=== PATIENT | female | born 1995 | race Caucasian/White ===

== ENCOUNTER 2025-02-06 11:11 | Inpatient (IN) | payer OTHER, SELFPAY ==
[2025-02-06] VITALS (9 sets, daily range): BP systolic 103–132; BP diastolic 63–114; BMI 21.3; BMI 22.0
[2025-02-06 04:37] LABS: % Basophils 0.7 % (0-2); % Eosinophils 0.3 % (0-6); % Immature Granulocytes 0.4 % (0-0.5); % Lymphocytes 20.8 % (20.5-51.1); % Monocytes 7.4 % (1.7-9.3); % Neutrophils 70.4 % (42.2-75.2); Absolute Basophils 0.1 10^3/uL (0-0.2); Absolute Lymphocytes 1.5 10^3/uL (1.2-3.4); Absolute Monocytes 0.5 10^3/uL (0.1-0.6); Absolute Neutrophils 5.1 10^3/uL (1.4-6.5); Hematocrit 39.3 % (37.0-47.0); Mean Corp Hgb Conc. 33.1 g/dL (33.0-37.0); Mean Corpuscular Volume 81.5 fL (81.0-99.0); Mean Platelet Volume 10.3 fL (7.4-10.4); Nucleated Red Blood Cells % 0 %; Platelet Count 311 10^3/uL (130-400); Red Blood Cell Count 4.82 10^6/uL (4.20-5.40); Red Cell Dist. Width 12.9 % (11.5-14.5); White Blood Cell Count 7.3 10^3/uL (4.8-10.8)
[2025-02-06 04:43] LABS: HCG, Serum Qualitative Screen Negative
[2025-02-06 05:03] LABS: ALT (SGPT) 275 U/L (0-35); AST (SGOT) 513 U/L (14-36); Albumin 4.8 g/dl (3.5-5.0); Alkaline Phosphatase 150 U/L (38-126); Blood Urea Nitrogen 7 mg/dl (7-17); Calcium 9.7 mg/dl (8.4-10.2); Carbon Dioxide 26 mmol/L (22-30); Chloride 108 mmol/L (98-107); Glucose 115 mg/dl (70-99); Lipase 154 U/L (23-300); Sodium 143 mmol/L (135-145); Total Bilirubin 1.5 mg/dl (0.2-1.3); Total Protein 7.7 g/dl (6.3-8.2); eGFR > 60.00
--- NOTE | 2025-02-06 07:08 | ED.GENMED ---
History of Present Illness
General
Chief Complaint: Abdominal Pain
Source: patient
Exam Limitations: none
Time Seen by Provider: 02/06/25 06:58
History of Present Illness
History of Present Illness:
29yoF with a history of PCOS and hypothyroidism presenting for evaluation of vomiting. Patient started Zepbound in May 2024 and has been having intermittent GI symptoms since then. She reports having vomiting, diarrhea, or constipation at
least once weekly. Her last dose of Zepbound was 3 days ago. She reports having persistent vomiting since last night. She also reports abdominal cramping. Symptoms have subsided currently. She denies any fevers or urinary symptoms. Her only
previous abdominal surgery was for intussusception as an .
Past History
Past History
ED Past Medical History: Hypothyroidism and Other (PCOS)
ED Past Surgical History: Other (Intussusception)
Social History
Tobacco: Non-smoker
Alcohol: None
Drug: None
Personal:
Living: with family
Employment: Employed
Phy Exam
General Physical Exam
General Presentation: well appearing and no apparent distress
General Skin: warm and dry
General Habitus: normal
General Mental: alert
ENT Exam
ENT Exam: normocephalic
Cardiovascular Exam
Cardiovascular Exam: regular rate/rhythm
Pulmonary Exam
Pulmonary Exam: lungs clear, no respiratory distress, no rales, no crackles, no rhonchi and no wheezing
Gastrointestinal Exam
Gastrointestinal Exam: soft, non distended and other (+Tenderness in RLQ and suprapubic regions. Abdomen soft, non-distended. No rebound or guarding.)
Neurological Exam
Neurological Exam: alert
Keysha Coma Scale
Eye Opening: Spontaneous
Verbal Response: Oriented
Motor Response: Obeys Commands
GCS Total Score: 15
Skin Exam
Skin Exam: normal color and warm/dry
Psychiatric Exam
Psychiatric Exam: normal mood/affect
Course
Orders/Labs/Results
Orders:
Orders
02/06/25 04:14
Test Result ONCE
02/06/25 04:19
Complete Blood Count/With Diff Urgent
Comprehensive Metabolic Panel Urgent
HCG, Serum Qualitative Screen Urgent
Lipase Urgent
TSH Reflex To Free T4 Urgent
Comment: ADD ON
02/06/25 07:07
0.9% Sodium Chloride 1000 ml [Nss] 1,000 ml IV BOLUS
US Abdomen Complete/Upper Urgent
Comment:
Reason For Exam: abd pain, vomiting, transaminitis
02/06/25 09:34
Consult Surgery [SURGICAL CONSULT] Urgent
Consulting Provider: Chetan Dorantes
Was physician already notified: Yes
02/06/25 09:56
CT Abd/pel W Iv And Oral Contr Routine
Comment: h/o intussuseption and PCOS
Reason For Exam: lower abdominal pain, n/v
Iohexol [Omnipaque] See Protocol PO NOW STA
02/06/25 09:57
GASTROINTESTINAL CONSULT Routine
Consulting Provider: Rossana Linares
Was physician already notified: Yes
02/06/25 10:47
Add On- LAB Routine
Tests Added?: TSH reflex FT4
02/06/25 10:54
Admit/Transfer Patient As Directed
Co-Sign Provider:
Level of Care: Inpatient admission
Assign to:: Medical/Surgical
Physician / Group: Johnny/hospitalist
Diagnosis: N/V/abd pain
Reason for Hospitalization: N/V/abd pain
Expected length of stay greater than two midnights?: Yes
ELOS- Estimated Length of Stay in days: 3
I certify the patient meets the requirements for IP care: Yes
Code Status As Directed
Resuscitation Status: Full Code
PRN Pain Medication Management As Directed
May give lesser potent ordered pain med per pt: Yes
preference::
Protocol:: Medication orders for pain may be administered in a
manner that supports deferring to patient preference
when the pt is:
- Requesting an ordered lesser potent pain medication.
Least to most potent pain medications are defined
as: acetaminophen < NSAID < tramadol < opioids
(morphine, oxycodone, hydromorphone).
- Requesting a lesser dose of the same medication IF
ORDERED.
- Requesting a less intrusive route of administration
if both routes are prescribed by the provider (PO <
IV).
02/06/25 12:59
Bisacodyl [Dulcolax] 10 mg RECTAL [id number] PRN
Docusate W/Senna [Senokot-S] 1 tablet PO BIDPRN PRN
Morphine Sulfate 2 mg IV Q4HPRN PRN
Ondansetron Injectable [Zofran] 4 mg IV Q6HPRN PRN
Polyethylene Glycol Powder [Miralax] 17 grams PO DAILYPRN PRN
02/06/25 12:59
Activity As Directed
Activity Level: As Tolerated
Vital Signs As Directed
Frequency: Per unit guidelines
DX Deep Vein Thrombosis Video Routine
02/06/25 Dinner
Clear Liquid
At Your Request: Full Participation
02/06/25 18:00
Enoxaparin Sodium [Lovenox] 40 mg SC QPM
02/07/25 06:00
Complete Blood Count/No Diff IN AM
Comprehensive Metabolic Panel IN AM
Magnesium IN AM
02/07/25 08:00
Levothyroxine [Synthroid] 50 mcg PO DAILY
02/08/25 06:00
Complete Blood Count/No Diff IN AM
Comprehensive Metabolic Panel IN AM
Abnormal Lab Results
02/06/25
04:19
Chloride 108 H mmol/L
(98-107)
Glucose 115 H mg/dl
(70-99)
Total Bilirubin 1.5 H mg/dl
(0.2-1.3)
AST 513 H* U/L
(14-36)
ALT 275 H U/L
(0-35)
Alkaline Phosphatase 150 H U/L
(38-126)
02/06/25 04:19
02/06/25 04:19
Vital Signs
Initial and Last Documented VS:
Initial Vital Signs
Temp Pulse Resp BP Pulse Ox
98.1 F 97 20 132/90 100
02/06/25 04:12 02/06/25 04:12 02/06/25 04:12 02/06/25 04:12 02/06/25 04:12
Last Documented Vital Signs
Temp Pulse Resp BP Pulse Ox
97.8 F 83 16 113/78 100
02/06/25 13:14 02/06/25 13:14 02/06/25 13:14 02/06/25 13:14 02/06/25 13:14
MDM/Problems Addressed
Differential Diagnosis Includes:
29yoF here with intermittent abd pain/vomiting/diarrhea/constipation. Ongoing x several months since starting Zepbound. Current symptoms started last night. Now feeling better on initial evaluation. VSS. She is well appearing in no distress. No
signs of peritonitis on abdominal exam. Differential diagnosis includes but is not limited to: pancreatitis, biliary colic, gastroenteritis, appendicitis
Initial ED plan: Labs obtained in triage. AST 513, ALT 275, and total bilirubin is 1.5. Lipase and white count WNL. HCG negative. Will check upper abdominal ultrasound. She declines analgesics/antiemetics.
*Critical Care Note
Total Time (30-74mins, 75-104mins- exclusive of procedures): Not Applicable
Update Note
Update Note:
Ultrasound shows cholelithiasis with mild GB wall thickening. Case discussed with general surgery who evaluated her at bedside. Pain is mostly in lower abdomen so surgery does not feel symptoms are related to cholecystitis. CT abdomen added. Patient
admitted to the hospitalist service for further evaluation.
ED Attending Note
-
Portions of this chart may have been created with voice recognition software.� Occasional wrong word or��sound alike� substitutions may have occurred due to the inherent limitations of voice recognition software.
Discharge Plan
Departure
Patient Disposition: Admit
Date of Disposition: 02/06/25
Time of Disposition: 09:52
Presentation/result/management discussed w/ accepting MD/DO: Hospitalist
Discharge Problem:
Abdominal pain, Transaminitis
Interventions
Interventions:
*Risk Screen - Suicide Last Done: 02/06/25 04:12
*General Assessment Last Done: 02/06/25 04:12
*Neglect/Abuse Screening Last Done: 02/06/25 04:12
*ED- Fall Risk Assessment Last Done: 02/06/25 05:46
*ED COVID-19 Vaccine History Last Done: 02/06/25 05:46
OI-Ugrcrx-Hjkxrixuyp Assessment Last Done: 02/06/25 08:30
Discharge Date and Time
Discharge Date/Time: 02/06/25 13:05
[2025-02-06] MEDS: NSS 1000 IV (08:54)
--- NOTE | 2025-02-06 09:58 | CON.GS ---
Addendum entered and electronically signed by Chetan Dorantes MD 02/06/25 14:31:
Patient seen and examined for consultation this afternoon in follow-up to [employer]'s evaluation this a.m.
Agree with documented consultation note with additions noted here.
HPI: 29-year-old female with remote surgical history of open appendectomy as infant/child at time of surgery for intussusception. She reports a history of IBS with food sensitivities over the years. Recently started on Zepbound this past May
and she reports she has been experiencing recurrent GI symptoms essentially on a weekly basis since. Pain more severe this past evening than any of her prior episodes prompting emergency department evaluation.
Patient states that she usually develops the acute onset of lower abdominal cramping and nausea with intermittent vomiting a few days after Zepbound injection. It has never localized to the epigastrium or upper abdomen/right upper quadrant. There
is no radiation to the back or shoulder blade area. It does typically occur in the evening or overnight. She thinks there may be some association with dietary intake such as dairy/fatty food which may make it worse but it occurs regardless of
dietary intake as well.
PMH: PCOS, hypothyroidism PSH: As outlined above
AFVSS
NAD AAO x 3 resting comfortably in hospital bed on computer
ABD: Soft, very minimal tenderness lower abdomen only. No tenderness in the epigastrium, right upper quadrant. Negative Caldwell's.
Laboratory testing reviewed and notable for elevated bilirubin, AST ALT and alkaline phosphatase. Lipase normal. CBC within normal limits.
Ultrasound imaging personally reviewed as well as radiologist report. tiny mobile calculi within the gallbladder lumen. Gallbladder wall measures 3.7 mm. Negative sonographic Caldwell's. No biliary ductal dilation.
CT abdomen/pelvis with contrast: No abnormality within the stomach, small bowel or colon. No intra-abdominal inflammatory changes or free fluid. Gallbladder without distention and inflammatory changes. Questionable mild gallbladder wall
thickening but imaging study is limited with regards to gallbladder evaluation.
Assessment/plan: 29-year-old female presenting with intermittent abdominal pain/nausea vomiting which may be secondary to Zepbound as location of pain is lower abdomen rather than right upper quadrant and there is no tenderness on evaluation of the
epigastrium or right upper quadrant.
Uncertain etiology to mild elevation of her LFTs although these could reflect gallbladder inflammation or passage of gallstone.
Will order MRCP to confirm no evidence of choledocholithiasis or biliary abnormality.
GI evaluation pending as well.
Likely will recommend expectant management of the gallbladder/gallstones and cessation of GLP-1's unless MRI shows evidence of choledocholithiasis or clear evidence of gallbladder inflammation with stones.
Will follow pending MRI results
Original Note:
Consultation
-
Date/Time Consultation Performed: 02/06/25929
Medical History
-
Chief Complaint: abd pain, n/v
History of Present Illness:
Ms Louis is a 29yo female with a h/o open appendectomy, intussusception as a child and PCOS for which she has been on Zepbound low dose injections weekly since May. She notes that several days after she administers her medication, she has
abdominal cramping and lower abdominal pain with nausea, vomiting and alternating diarrhea and constipation. Last night, she had similar symptoms to previous only more severe causing her to present for evaluation. On exam, she has mild bilateral
lower abdominal tenderness which is somewhat worse on the left side. No RUQ tenderness present. She denies prior episodes of RUQ pain in the past. She denies pain with eating. She denies fevers or chills. She denies jaundice.
Past Medical History
Past Medical History: Hypothyroidism and Other (PCOS, intussusception)
Past Surgical History: Appendectomy (open) and Other (?surgery for intussusception at time of appendectomy)
Social History
Tobacco: Non-Smoker
Alcohol: None
Family History
Family History: Reviewed & Not Pertinent
Allergies / Home Medications
Allergy/AdvReac Type Severity Reaction Status Date / Time
No Known Allergies Allergy Verified 08/24/23 00:22
�Medication �Instructions �Recorded �Confirmed �Type
albuterol sulfate 1.25 mg/3 mL 1.25 mg (3 mL) inhalation QID PRN 08/24/23 Rx
solution for nebulization shortness of breath or wheezing
#90 mL
azithromycin 250 mg tablet 250 mg PO DAILY #6 tabs 08/24/23 Rx
(Zithromax)
levothyroxine 50 mcg tablet 50 mcg PO DAILY 08/24/23 08/24/23 History
metformin 500 mg tablet 500 mg PO HS 08/24/23 08/24/23 History
prednisone 50 mg tablet 50 mg PO DAILY #5 tabs 08/24/23 Rx
Review of Systems
-
History Source: Patient
All other systems: Negative unless noted
A 10 point review of systems was completed, and was negative except as per HPI.
Physical Exam
Vital Signs
Temp Pulse Resp BP Pulse Ox
98.1 F 97 20 103/63 100
02/06/25 04:12 02/06/25 04:12 02/06/25 04:12 02/06/25 09:00 02/06/25 09:00
Lab Results
02/06/25 04:19
02/06/25 04:19
WBC 7.3 10^3/uL (4.8-10.8) 02/06/25 04:19
Hgb 13.0 g/dL (12.0-16.0) 02/06/25 04:19
Hct 39.3 % (37.0-47.0) 02/06/25 04:19
Plt Count 311 10^3/uL (130-400) 02/06/25 04:19
Abs Immat Gran (auto) 0.0 10^3/uL (0-0.05) 02/06/25 04:19
Neutrophils % 70.4 % (42.2-75.2) 02/06/25 04:19
Physical Exam
General: Well Developed and Well Nourished
HEENT: Moist Mucous Membranes
Respiratory: Non Labored Respirations
GI: Soft, Tender (mild to BLLQ) and Distended (mild)
Skin: Warm and Dry
Neuro: Awake, Alert and AO x 3
Psych: Calm
Data Reviewed
-
Ultrasound: Image Personally Visualized and interpreted, Report Reviewed by me, Discussed with Physician and Discussed with Patient
Labs: Labs Reviewed by me, Discussed with Physician and Discussed with Patient
Old Records: Reviewed
Assessment / Plan
-
29 yo female with h/o open appi and possible concurrent surgery for intussusception as a young child, PCOS on Zepbound presenting with ongoing lower abdominal pain and cramping since May which she has associated with Zepbound dosing as symptoms
began when she started taking the drug. Last night, symptoms recurred and were more severe and associated with N/V. Currently with mild BLLQ tenderness and mild distention. Afebrile. Stable VS. Mild LFT elevations, no leukocytosis. US of the abdomen
with cholelithiasis present and mild wall thickening with distention. She does not have any RUQ tenderness currently and denies this in the past.
Reviewed US and lab findings with patient. Exam findings not consistent with acute calculous cholecystitis although gallstones are present which was reviewed with her. Will plan further imaging with CT abd/pelvis to further evaluate. Further
surgical recommendations pending imaging.
[2025-02-06] MEDS: OMNIPAQUE 50 ML PO (10:32)
--- NOTE | 2025-02-06 10:41 | HPS.HSE ---
Family Physician
-
Family Physician: Savita Parada
Chief Complaint
-
N/V/BL lower abd pain
History of Present Illness
HPI: 29 yo F with PMH PCOS, hypothyroidism; p/w nausea and vomiting. Patient was started with Zepbound in May 2024 and has been having intermittent GI symptoms with vomiting, diarrhea or constipation at least once weekly since then. Her last
dose of Zepbound was 3 days ago [employer].
She reports having persistent vomiting since the night [employer] with BL lower abdominal cramping. Symptoms have subsided in the ED.
She denies to other symptoms such as fevers or urinary symptoms etc.
Her only previous abdominal surgery was for intussusception as an .
Medical History
Past Medical History
Past Medical History: Reports Other
Additional Past Medical History:
PCOS,
hypothyroidism
Past Surgical History: Reports Appendectomy and Other
Additional Past Surgical History:
surgery for intussusception as an infant.
Social History
Tobacco: Non-smoker
Alcohol: Occasional
Family History
Family History: Not pertinent
Allergies / Home Medications
Allergies reflects when Allergies were last updated in [facility].
Home Medications with original date entered in [facility]
Allergy/Medication List:
Medications on admission are unable to be verified or confirmed at this time.
Review of Systems
-
Abdomen/GI: Reports See HPI, Abdominal Pain, Nausea and Vomiting
Physical Exam
Vital Signs
Vital Signs
Temp Pulse Resp BP Pulse Ox
36.7 C 97 20 103/63 100
02/06/25 04:12 02/06/25 04:12 02/06/25 04:12 02/06/25 09:00 02/06/25 09:00
Physical Exam
General: Well Developed, Well Nourished, No Apparent Distress, Comfortable and Conversant
HEENT: NormoCephalic, Moist mucous membranes and Atraumatic
Respiratory: Clear and Non Labored Respirations; No Accessory Resp Muscle Use
Cardiac: S1/S2 and Regular Rhythm; No Murmur or Rub
GI: Soft, Non Tender, Non Distended and Normal Bowel Sounds; No Organomegaly
Rectal: Deferred by Provider
Musculoskeletal: No Clubbing, No Cyanosis and No Edema
Skin: No Rash
Neuro: Awake and Alert
Psych: Calm and Intact Judgment/Insight
Laboratory Results
-
02/06/25 04:19
02/06/25 04:19
Laboratory Results
Total Bilirubin 1.5 mg/dl (0.2-1.3) H 02/06/25 04:19
AST 513 U/L (14-36) H* 02/06/25 04:19
ALT 275 U/L (0-35) H 02/06/25 04:19
Alkaline Phosphatase 150 U/L (38-126) H 02/06/25 04:19
Lipase 154 U/L (23-300) 02/06/25 04:19
Data Reviewed
-
Ultrasound: Report Reviewed by me
Lab Data: Labs Reviewed by me and Discussed with Patient
Impression/Plan
-
HPI: 29 yo F with PMH PCOS, hypothyroidism; p/w nausea and vomiting. Patient was started with Zepbound in May 2024 and has been having intermittent GI symptoms with vomiting, diarrhea or constipation at least once weekly since then. Her last
dose of Zepbound was 3 days ago [employer].
She reports having persistent vomiting since the night [employer] with BL lower abdominal cramping. Symptoms have subsided in the ED.
She denies to other symptoms such as fevers or urinary symptoms etc.
Her only previous abdominal surgery was for intussusception as an .
Abd US:
1. CHOLELITHIASIS, mild gallbladder wall thickening, and mild gallbladder distention.
2. No sonographic evidence for biliary obstruction.
3. Mild diffuse liver disease.
A/P:
# N/V/abd pain, could be 2/2 Zepbound S/E
Stop further Zepbound
Zofran PRN
Exam not consistent with acute calculous cholecystitis per GS
Check CT AP
GI CS
Clears for now in setting of N/V
# Transaminitis, due to DILI?
Monitor LFT
GI CS
Other medical conditions:
# PCOS
on metformin, hold for now
# hypothyroidism
Check TSH reflex FT4
cont [employer] Synthroid at 50 mcg daily
DVT ppx: Lovenox SQ
FC
[2025-02-07] MEDS: SYNTHROID 50 MCG PO (05:14)
[2025-02-07 05:41] LABS: Hematocrit 33.7 % (37.0-47.0); Hemoglobin 11.2 g/dL (12.0-16.0); Mean Corp Hgb Conc. 33.2 g/dL (33.0-37.0); Mean Corpuscular Hgb 27.6 pg (27.0-31.0); Mean Platelet Volume 10.6 fL (7.4-10.4); Platelet Count 286 10^3/uL (130-400); Red Blood Cell Count 4.06 10^6/uL (4.20-5.40); Red Cell Dist. Width 13.1 % (11.5-14.5); White Blood Cell Count 4.5 10^3/uL (4.8-10.8)
[2025-02-07 06:05] LABS: ALT (SGPT) 351 U/L (0-35); AST (SGOT) 218 U/L (14-36); Albumin 3.9 g/dl (3.5-5.0); Alkaline Phosphatase 109 U/L (38-126); Blood Urea Nitrogen < 2 mg/dl (7-17); Carbon Dioxide 26 mmol/L (22-30); Chloride 111 mmol/L (98-107); Estimated Creatinine Clearance 109 ml/min; Glucose 86 mg/dl (70-99); Magnesium 1.9 mg/dl (1.6-2.3); Sodium 140 mmol/L (135-145); Total Bilirubin 0.7 mg/dl (0.2-1.3); Total Protein 6.3 g/dl (6.3-8.2); eGFR > 60.00
--- NOTE | 2025-02-07 07:08 | CON.GI ---
Addendum entered and electronically signed by Rossana Linares MD 02/08/25 07:22:
I saw and examined the patient.
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
Comment: Late entry:
29-year-old female with history of PCOS, history of abdominal surgeries including open appendectomy, history of intussusception with surgical intervention as a child presenting with complaints of nausea and vomiting since she started Zepbound back
in May 2024, she would have these episodes once a week where she would not have nausea and vomiting with certain foods, mainly with fatty food and usually after dinner. She would throw up food. She also had discomfort in the abdomen on and
off, in the lower abdomen mainly, not in the upper abdomen. No heartburn, regurgitation, sour taste, sore throat, choking or coughing. No trouble swallowing. Her bowel movement pattern is erratic, she may have 1-2 bowel movements a day and
sometimes she may skip 2 days, some pushing and straining but usually good evacuation. She takes MiraLAX and Gas-X as needed. No blood in the stool or black stool. When she was on metformin, she had constipation with Zepbound she has some
diarrhea. Since starting Zepbound she lost about 40 pounds, 170 to 130 pounds since May 2024.
On admission, she had mildly elevated total bilirubin which subsequently normalized, AST was 513, down to 218, ALT of 275, now 351, alkaline phosphatase was 150, down to 109. Lipase and CBC within normal range. Celiac panel pending. Abdominal
ultrasound showed cholelithiasis and mild gallbladder wall thickening and diffuse fatty liver, bile ducts normal. MRI showing mild gallbladder distention and mild diffuse wall thickening and probable cholelithiasis, no stones.
Patient currently completely pain-free.
- Abdominal discomfort, LFT elevation and now trending down, altered bowel habits and mild gallbladder distention versus thickening on imaging.
Now symptoms of abdominal discomfort completely resolved.
No baseline LFTs to compare to but fatty liver noted on imaging.
Given pain is in the lower abdomen, no evidence of Caldwell sign, clinically not suggesting acute cholecystitis.
Discussed with patient that if her abdominal pain continues or if she has epigastric or right upper quadrant pain, she needs to return to the emergency room immediately.
Unclear etiology with elevated LFTs, follow-up with repeat LFTs in 1 week, if persistent elevation, return to our office as outpatient.
Await celiac panel as well.
History of erratic bowel pattern, could be related to GLP-1 agonists. Outpatient GI follow-up suggested.
Original Note:
Consultation
-
Date/Time Consultation Requested: 02/06/25 1000
Date/Time Consultation Performed: 01/1625 1030
Requesting Provider: Trish Turner MD
Performing Provider: PREM Hennessy, Rossana Linares MD
Reason for Consultation: elevated LFT's
Medical History
Chief Complaint / HPI
Chief Complaint: abdominal pain
History of Present Illness:
Pt is a 29yo with hx open appe and intussusception with surgical intervention as child, PCOS, hypothyroidism, IBS with recent start of Zepbound in May for PCOS with some ongoing abdominal symptoms. On admission noted with bili 1.5, AST 513, ALT
275, alk phos 150 with lipase 154 with improvement after admission. Imaging with noted US cholelithiasis, mild GBWT and mild GB distention without biliary obstruction, mild diffuse liver disease, CT with No intestinal obstruction, free air,
findings to suggest intussusception or right lower quadrant inflammatory changes, cannot excluded mild GBWT and incomplete distention without biliary tract dilatation, sub SM right hepatic lesion too small to characterize. She then proceeded to MRCP
with mild gallbladder distention, mild GBWT and cholelithiasis, no choledocholithiasis or biliary dilatation and moderate malrotation of right kidney.
In review with patient she admits to abdominal pain below belly button and vomiting especially with fatty meals. She has lost 30 lb since start of Zepbound. She also reports some chronic constipation with increased constipation with metformin
then diarrhea with Zepbound. She also admits to bloating. She denies issue with odynophagia, GERD, or rectal bleeding. No hx EGD or colonoscopy in past.
Past Medical History
Past Medical History: Hypothyroidism and Other (IBS, PCOS)
Past Surgical History: Appendectomy (open as child with hx intussusception)
Social History
Tobacco: Non-Smoker
Alcohol: Occasional
Drug: None
Personal: Other (milad[facility] )
Living: Other ([facility])
Family History
Family History: Other (distant relatives with colon CA)
Allergies / Home Medications
Allergy/AdvReac Type Severity Reaction Status Date / Time
No Known Allergies Allergy Verified 08/24/23 00:22
�Medication �Instructions �Recorded
levothyroxine 50 mcg tablet 50 mcg PO DAILY 08/24/23
metformin 500 mg tablet 2,000 mg PO QPM 08/24/23
bismuth subsalicylate 262 mg 2 tab PO DAILYPRN PRN upset stomach 02/06/25
chewable tablet (Pepto-Bismol
To-Go)
simethicone 250 mg capsule (Gas-X) 250 mg PO DAILYPRN PRN gas 02/06/25
therapeutic multivitamin 1 tab PO DAILY 02/06/25
tirzepatide (weight loss) 2.5 2.5 mg SC QWEEK 02/06/25
mg/0.5 mL subcutaneous solution
vitamin C 45 mg-zinc citrate 3.75 1 tab PO DAILY 02/06/25
mg-elderberry 50 mg chewable
tablet (Elderberry [facility])
Review of Systems
-
History Source: Patient and Family
Constitutional: Reports Weight Loss (with zepound use )
EENT: Reports No Symptoms
Respiratory: Reports No Symptoms
Cardiac: Reports No Symptoms
Abdomen/GI: Reports Abdominal Pain, Nausea, Vomiting, Diarrhea and Constipated
: Reports No Symptoms
Musculoskeletal: Reports No Symptoms
Skin: Reports No Symptoms
Neurological: Reports Weakness
Endocrine: Reports No Symptoms
Hematologic/Lymphatic: Reports No Symptoms
Vital Signs
Temp Pulse Resp BP Pulse Ox
97.8 F 82 16 115/76 99
02/06/25 23:00 02/06/25 23:00 02/06/25 23:00 02/06/25 23:00 02/06/25 23:00
Physical Exam
Exam
General: Well Developed, Well Nourished and No Apparent Distress
HEENT: Normocephalic and Anicteric
Respiratory: Clear
Cardiac: Regular Rhythm
GI: Soft, Non Tender and Non Distended
Musculoskeletal: No Clubbing and No Cyanosis
Skin: Warm and Dry
Neuro: Awake, Alert and AO x 3
Psych: Calm
Results
WBC 4.5 10^3/uL (4.8-10.8) L 02/07/25 05:22
Hgb 11.2 g/dL (12.0-16.0) L 02/07/25 05:22
Hct 33.7 % (37.0-47.0) L 02/07/25 05:22
MCV 83.0 fL (81.0-99.0) 02/07/25 05:22
Plt Count 286 10^3/uL (130-400) 02/07/25 05:22
Absolute Neuts (auto) 5.1 10^3/uL (1.4-6.5) 02/06/25 04:19
Sodium 140 mmol/L (135-145) 02/07/25 05:22
Potassium 4.0 mmol/L (3.5-5.1) 02/07/25 05:22
Chloride 111 mmol/L (98-107) H 02/07/25 05:22
Carbon Dioxide 26 mmol/L (22-30) 02/07/25 05:22
BUN < 2 mg/dl (7-17) L 02/07/25 05:22
Creatinine 0.7 mg/dL (0.6-1.0) 02/07/25 05:22
Calcium 9.0 mg/dl (8.4-10.2) 02/07/25 05:22
Total Bilirubin 0.7 mg/dl (0.2-1.3) 02/07/25 05:22
AST 218 U/L (14-36) H 02/07/25 05:22
ALT 351 U/L (0-35) H 02/07/25 05:22
Alkaline Phosphatase 109 U/L (38-126) 02/07/25 05:22
Lipase 154 U/L (23-300) 02/06/25 04:19
Diagnostic Image Results:
02/06/25 US abdomen
1. CHOLELITHIASIS, mild gallbladder wall thickening, and mild gallbladder distention.
2. No sonographic evidence for biliary obstruction.
3. Mild diffuse liver disease.
02/06/25 CT Abd/pel W Iv And Oral Contr
No intestinal obstruction, free air, findings to suggest intussusception or right lower quadrant inflammatory changes.
Cannot exclude some mild gallbladder wall thickening, most likely incomplete distention. No biliary tract dilatation.
Subcentimeter low-attenuation right lobe hepatic lesion too small to characterize.
Prior GI Procedures:
EGD: none
Colonoscopy: none
Assessment / Plan
-
Pt is a 29yo with hx open appe and intussusception with surgical intervention as child, PCOS, hypothyroidism, IBS with recent start of Zepbound in May with some ongoing abdominal symptoms with 30 lbs wt loss. On admission noted with bili 1.5,
AST 513, ALT 275, alk phos 150 with lipase 154. Imaging with noted US cholelithiasis, mild GBWT and mild GB distention without biliary obstruction, mild diffuse liver disease, CT with No intestinal obstruction, free air, findings to suggest
intussusception or right lower quadrant inflammatory changes, cannot excluded mild GBWT and incomplete distention without biliary tract dilatation, sub SM right hepatic lesion too small to characterize. She then proceeded to MRCP with mild
gallbladder distention, mild GBWT and cholelithiasis, no choledocholithiasis or biliary dilatation and moderate malrotation of right kidney.
-nausea/vomiting
-constipation with metformin then diarrhea with Zepbound
-increased LFT's
-chronic Zepbound use
-imaging with mild GBWT and distention
-sub CM hepatic lesion, diffuse liver disease on noted imaging
other med problems:
-hx open appe and intussusception with surgical intervention as child
-PCOS
-hypothyroidism
-IBS
PLAN:
Etiology of vomiting with rise in LFT's, constipation then diarrhea related to biliary etiology with mild GB distention/GBWT with cholelithiasis, vs passed stone, constipation with lower abdomen pain related to chronic constipation with change in
bowels with adding Zepbound vs IBS with hx prior surgical intervention vs other
pt feeling better today without abdominal pain or vomiting and asking to go home
LFT's improving
will change to low fat diet
plan per surgery to eval for jumana
pt plan to stop Zepbound
would have pt follow up 4-6 week to see where bowel function is which chronic constipation to see if further laxative regiment needed
TSH normal will add CRP, ESR and celiac panel
reviewed with patient and family if discharged but recurrent post prandial pain, vomiting or problems to return to ER
family updated
-
-
Thank you for consultation and allowing me to participate in the patient's care. Please call the environmental scientists GI physician during the after hours with any questions or concerns.
[2025-02-07 07:17] VITALS: BP 110/56
--- NOTE | 2025-02-07 07:48 | W.PN.GS2 ---
Addendum entered and electronically signed by Yury Cruz MD 02/07/25 15:44:
I also explained that she is at high risk for recurrence of her current hospital admission, roughly 10 to 20% within 3 months which she acknowledged but is adamant she does not want surgery at this time.
Ursodiol prescription sent, patient can follow-up with me as needed.
Addendum entered and electronically signed by Yury Cruz MD 02/07/25 15:36:
I saw and examined the patient independently.
The resident's documentation was reviewed and I agree with the note, assessment and plan except where noted below.
Comment: MRI reviewed, cholelithiasis noted but no choledocholithiasis. LFTs improved.
Had a lengthy discussion with the patient to regarding gallstones and the natural history.
She is not interested in surgery at this time and given that her stones are quite small I think it is reasonable for her to pursue a course of ursodiol for gallstone dissolution.
She will follow-up with her change number operator regarding this.
I think it would be reasonable to repeat an ultrasound in 6 to 12 months to assess progress.
All questions answered, patient agreeable to plan of care above.
No acute general surgery intervention warranted at this time.
Dispo per primary
Original Note:
Today's Communication / Plan
-
Advance to regular diet
No surgical intervention needed
Will follow on outpatient basis
Assessment / Plan
-
Impression
Patient is a 29-year-old female with past medical history of hypothyroidism and PCOS, taking Zepbound since May 2024, having intermittent digestive issues since but she also has history of IBS with food sensitivities over the years. Admitted
for questionable mild gallbladder wall thickening/elevated liver enzymes
Currently asymptomatic, denies any nausea, vomiting, abdominal pain
Had a bowel movement last night
On clears, tolerating without any issues
Denies any fever or chills
On labs Review
No leukocytosis
Drop in hemoglobin from 13 to 11
Liver enzymes trending down
Mild hyperchloremia
On imaging review
Ultrasound abdomen 02/06/2025
IMPRESSION:
1. CHOLELITHIASIS, mild gallbladder wall thickening, and mild gallbladder distention.
2. No sonographic evidence for biliary obstruction.
3. Mild diffuse liver disease.
CT abdomen/pelvis 02/06/2025
IMPRESSION:
No intestinal obstruction, free air, findings to suggest intussusception or right lower quadrant inflammatory changes.
Cannot exclude some mild gallbladder wall thickening, most likely incomplete distention. No biliary tract dilatation.
MRCP 02/07/2025
IMPRESSION:
1. Mild gallbladder distention, mild diffuse gallbladder wall thickening, and probable cholelithiasis.
2. No MRCP evidence for choledocholithiasis or biliary obstruction.
3. Moderate malrotation of the right kidney.
Assessment/plan
No clear-cut evidence of acute cholecystitis given normal WBC count, and clinical findings or imaging findings
No choledocholithiasis
Liver enzymes improving-cause remains unclear
GI evaluation-Regarding elevated liver enzymes
Continue to monitor
Regular diet
No surgical intervention needed at this time
Follow-up on outpatient basis
Subjective Data
-
Date of Service: February 07, 2025
Patient seen at bedside, lying comfortably in bed, on clear liquid diet
Patient had a bowel movement yesterday
Denies any nausea, vomiting, reports marked improvement in her lower abdominal cramps
Denies any fever
Objective Data
-
Intake and Output
02/06/25 02/07/25 02/08/25
06:59 06:59 06:59
Intake Total 600 / 600
Balance 600 / 600
Intake:
Oral fluids 600 / 600
Other:
Number of approximated MODERATE 2
amounts of urine
Vital Signs
Temp Pulse Resp BP Pulse Ox
98.0 F 98 17 110/56 97
02/07/25 07:17 02/07/25 07:17 02/07/25 07:17 02/07/25 07:17 02/07/25 07:17
Lab Results
02/07/25 05:22
02/07/25 05:22
Calcium 9.0 mg/dl (8.4-10.2) 02/07/25 05:22
Magnesium 1.9 mg/dl (1.6-2.3) 02/07/25 05:22
Total Bilirubin 0.7 mg/dl (0.2-1.3) 02/07/25 05:22
AST 218 U/L (14-36) H 02/07/25 05:22
ALT 351 U/L (0-35) H 02/07/25 05:22
Alkaline Phosphatase 109 U/L (38-126) 02/07/25 05:22
Total Protein 6.3 g/dl (6.3-8.2) 02/07/25 05:22
Albumin 3.9 g/dl (3.5-5.0) 02/07/25 05:22
Physical Exam
-
No apparent distress
Alert, oriented, resting comfortably
Abdomen soft, some discomfort on palpating the lower abdomen but no tenderness, no guarding, no rigidity
Chest bilaterally clear to auscultation
Judgment and insight good
Patient has a cristobal catheter: No
Patient has a central line: No
--- NOTE | 2025-02-07 08:51 | W.PN.HOSP.TC ---
Addendum entered and electronically signed by Trish Turner MD 02/07/25 12:04:
total DC time 40 min
Original Note:
Today's Communication/Plan
-
see A/P
Assessment / Plan
Assessment / Plan
HPI: 29 yo F with PMH PCOS, hypothyroidism; p/w nausea and vomiting. Patient was started with Zepbound in May 2024 and has been having intermittent GI symptoms with vomiting, diarrhea or constipation at least once weekly since then. 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
She reports having persistent vomiting since the night PSYCHIATRY TEACHER with BL lower abdominal cramping. Symptoms have subsided in the ED.
She denies to other symptoms such as fevers or urinary symptoms etc.
Her only previous abdominal surgery was for intussusception as an infant.
Abd US:
1. CHOLELITHIASIS, mild gallbladder wall thickening, and mild gallbladder distention.
2. No sonographic evidence for biliary obstruction.
3. Mild diffuse liver disease.
CT AP:
No intestinal obstruction, free air, findings to suggest intussusception or right lower quadrant inflammatory changes.
Cannot exclude some mild gallbladder wall thickening, most likely incomplete distention. No biliary tract dilatation.
Subcentimeter low-attenuation right lobe hepatic lesion too small to characterize.
MRCP:
1. Mild gallbladder distention, mild diffuse gallbladder wall thickening, and probable cholelithiasis.
2. No MRCP evidence for choledocholithiasis or biliary obstruction.
3. Moderate malrotation of the right kidney.
A/P:
# N/V/abd pain, could be 2/2 Zepbound S/E, GI symptoms have resolved
Stop further Zepbound
Zofran PRN
Exam not consistent with acute calculous cholecystitis per GS
CT AP unrevealing
MRCP negative for choledocholithiasis
GI on board
advance current clear liquid diet to low residue and monitor for tolerance
# Transaminitis, due to DILI?
Monitor LFT, improving but still significantly high (ALT 351, AST 218)
GI consulted
# Constipation
start Senokot-S BID, Miralax daily
Other medical conditions:
# PCOS
on metformin, hold for now
# hypothyroidism
TSH 1.7
cont PSYCHIATRY TEACHER Synthroid at 50 mcg daily
DVT ppx: Lovenox SQ
FC
DW GI
total time spent 51 min
Anticipated Discharge: Within 24 hours
Subjective/Interval History
-
Date of Service: February 07, 2025
Objective Data
-
Labs:
Laboratory Results
02/07/25
05:22
WBC 4.5 L
Hgb 11.2 L
Hct 33.7 L
Plt Count 286
Sodium 140
Potassium 4.0
Chloride 111 H
Carbon Dioxide 26
BUN < 2 L
Creatinine 0.7
Glucose 86
Calcium 9.0
Total Bilirubin 0.7
AST 218 H
ALT 351 H
Alkaline Phosphatase 109
Vital Signs:
Vital Signs
Temp Pulse Resp BP Pulse Ox
36.7 C 98 17 110/56 97
02/07/25 07:17 02/07/25 07:17 02/07/25 07:17 02/07/25 07:17 02/07/25 07:17
I&O
02/06/25 02/07/25 02/08/25
06:59 06:59 06:59
Intake Total 600 / 600
Balance 600 / 600
Review of Systems
-
History Source: Patient
All other systems: Reviewed and negative
Abdomen/GI: Denies Abdominal Pain (resolved)
Physical Exam
-
General: Well Developed, Well Nourished, No Apparent Distress, Comfortable and Conversant; Negative Respiratory Distress
HEENT: Normocephalic, Atraumatic, Nose Appears Normal and Ears Appear Normal; Negative Oxygen
Respiratory: Clear to Auscultation and Non Labored Respirations; Negative Accessory Resp Muscle Use
Cardiac: Regular Rhythm and S1/S2
GI: Soft, Nontender, Nondistended and Normal Bowel Sounds
Skin: Warm and Dry
Neuro: Awake, Alert, Oriented, AO x 3 and Nonfocal/Grossly Intact
Psych: Calm and Intact Judgement/Insight
Data Reviewed
-
CT Scan: Report Reviewed by me
Ultrasound: Report Reviewed by me
MRI: Report Reviewed by me and Discussed with Patient
Labs: Labs Reviewed by me
[2025-02-07] MEDS: SENOKOT-S 1 TABLET PO (09:53)
[2025-02-07] MEDS: MIRALAX 17 GRAMS PO (09:53)
--- NOTE | 2025-02-07 11:57 | W.DCSUMMARY ---
Discharge Summary
Discharge Data
Date of Admission: 02/06/25
Date of Discharge: 02/07/25
-
Pending Results: No
Hospital Course
Principal Diagnosis:
N/V/abd pain, could be 2/2 Zepbound S/E, GI symptoms have resolved
Transaminitis, due to DILI?
Chronic Diagnoses:�
PCOS on metformin
Hypothyroidism, TSH 1.7. 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
Consultations:�
General surgery
Gastroenterology
Procedures:�
None
Clinical course:�
This is a 29-year-old female with past medical history as stated above, who presented with nausea and vomiting. Patient was started with Zepbound in May 2024 and has been having intermittent GI symptoms since then.
Abd US:
1. CHOLELITHIASIS, mild gallbladder wall thickening, and mild gallbladder distention.
2. No sonographic evidence for biliary obstruction.
3. Mild diffuse liver disease.
CT AP:
No intestinal obstruction, free air, findings to suggest intussusception or right lower quadrant inflammatory changes.
Cannot exclude some mild gallbladder wall thickening, most likely incomplete distention. No biliary tract dilatation.
Subcentimeter low-attenuation right lobe hepatic lesion too small to characterize.
MRCP:
1. Mild gallbladder distention, mild diffuse gallbladder wall thickening, and probable cholelithiasis.
2. No MRCP evidence for choledocholithiasis or biliary obstruction.
3. Moderate malrotation of the right kidney.
Problem 1:
N/V/abd pain, could be 2/2 Zepbound S/E.
Her GI symptoms have resolved during her hospital stay.
She has been informed to discontinue Zepbound going forward.
Her CT abdomen pelvis and MRCP were both unrevealing, noted mild diffuse gallbladder wall thickening but her physical exam was not consistent with acute calculus cholecystitis (her abd pain was mostly bilateral lower abdomen).
Her diet was advanced to low residue which she tolerated well, hence she was cleared for discharge.
She has been informed to continue low-fat low-cholesterol diet going forward/
Problem 2:
Transaminitis, due to DILI?.
Her LFT improved during her hospital stay, and on discharge they were: ALT 351, AST 218.
She can check repeat LFT with result to her PCP outpatient.
Problem 3:
Constipation.
She was started with Senokot-S BID and Miralax daily while in the hospital, and can continue as needed use following discharge.
As for the rest of her medical problems, they were stable during her hospital stay.
Discharge Plan
-
Patient Disposition: Home (Routine Discharge)
Discharge Diagnosis/Procedures: Nausea/Vomiting/abdominal pain, could be due to Zepbound side effect;
Transaminitis could be due to Zepbound side effect;
Constipation
Condition: Good
Diet: As tolerated, Low Fat and Low Cholesterol
Activity: As tolerated
Driving Restrictions: As prior to admission
Blood Work: CMP in 1 week with your PCP
Referrals:
Savita Parada MD [Family Provider, Internal Medicine] - in less than 1 week
Prescriptions:
New
polyethylene glycol 3350 17 gram Powder In Packet
17 g PO DAILY PRN (Reason: constipation) Qty: 30 0RF
sennosides-docusate sodium 8.6-50 mg Tablet
1 tab PO BID PRN (Reason: Constipation) Qty: 20 0RF
Continued
metformin 500 mg Tablet
2,000 mg PO QPM
Rx Instructions:
with evening meal
levothyroxine 50 mcg Tablet
50 mcg PO DAILY
therapeutic multivitamin Tablet
1 tab PO DAILY
bismuth subsalicylate [Pepto-Bismol To-Go] 262 mg Tablet,Chewable
2 tab PO DAILYPRN PRN (Reason: upset stomach)
Gas-X 250 mg Capsule
250 mg PO DAILYPRN PRN (Reason: gas)
Elderberry [facility] 45-3.75-50 mg Tablet,Chewable
1 tab PO DAILY
Discontinued
tirzepatide (weight loss) 2.5 mg/0.5 mL Solution
2.5 mg SC QWEEK
Discharge Orders:
Discharge Patient (As Directed); Ordered 02/07/25
Ordered By: Trish Turner
Discharge Date and Time
Print Language: NIGERIEN
[2025-02-07 12:13] LABS: C-Reactive Protein < 5.00 mg/L (0.0-10.00)
--- NOTE | 2025-02-07 12:40 | CM ---
Alert awake oriented patient who lives with SO Jhonatan in an apartment with 4 steps to enter.She is independent in all ADLs . She dose not drive.
Pt said she was ready for discharge today . She said her mom Josette would drive her home.
NO DME
No VN / SNF
Pharmacy [facility] [address] [facility]
PLAN Dr Katheryn Esteban
PLAN Home no needs
[2025-02-07 13:28] LABS: IgA 168 mg/dl (70-400)
[2025-02-07 13:39] LABS: Erythrocyte Sed Rate 6 mm/hour (0-20)
== END 2025-02-07 13:37 | disposition home or self-care (01) | DRG 392 ==
LOC: 3 WEST ACU 11:11
PROVIDERS: Student in an Organized Health Care Education/Training Program; ADMITTING PHYSICIAN Internal Medicine; CONSULT PHYSICIAN Internal Medicine Gastroenterology; CONSULT PHYSICIAN Surgery; EMERGENCY PHYSICIAN Emergency Medicine; FAMILY PHYSICIAN Internal Medicine
DX: R10.9 Unspecified abdominal pain (principal); E28.2 Polycystic ovarian syndrome; E03.9 Hypothyroidism, unspecified; K82.8 Other specified diseases of gallbladder; K80.20 Calculus of gallbladder without cholecystitis without obstruction; K71.9 Toxic liver disease, unspecified
CPT/HCPCS: 74177; 74181; 76700; 80053; 82784; 83516; 83690; 83735; 84443; 84703; 85025; 85027; 85652; 86140; 86231; 96360; 99285; Q9967